=== PATIENT | female | born 1975 | race Caucasian/White ===

== ENCOUNTER 2016-04-21 11:58 | Emergency (ER) | payer BC ==
[~2016-04-21] VITALS: Ht 165.1 cm; Wt 99.1 kg
[~2016-04-21 11:58] MED LIST: GABA100C4 PO; MECL25CH CHEW; MELO7.5T4 PO; VARIINJ SQ
[2016-04-21 12:03] VITALS: BP 143/89; PULSE 80; RESP 18; TEMP 98.7; O2SAT 98
--- NOTE | 2016-04-21 13:22 | PD ---
HPI Chief Complaint: Cold / Flu Symptoms Time Seen by Provider: 13:19 Travel History International Travel<30 days: No Contact w/Intl Traveler<30days: No Traveled to known affect area: No History of Present Illness HPI Patient is a 40-year-old female presenting with "head cold for one week ". She states she's had nasal congestion, dry throat and it cough for one week. Mostly dry but occasionally has been clear sputum. She has had 2 episodes with small streaks of blood in it. She has had some tightness in her chest and equivocal wheezing, no history of asthma or tobacco use. She denies chest pain and dyspnea. She states that yesterday she developed a fever with MAXIMUM TEMPERATURE 101.1 Fahrenheit. It has responded to antipyretics. She feels like all her symptoms have worsened and that time and she has worsening cough, worsening nasal congestion as well as hoarseness in her voice. She denies difficulty swallowing or breathing. She denies pain in her neck. She denies abdominal pain, nausea, vomiting, diarrhea. She did not receive influenza vaccine and works in a [employer]. [facility] Past Medical History Medical History: Denies Significant Hx Asthma: Yes Autoimmune Disease: No Heart Rhythm Problems: No Cancer: No Cardiac Catheterization: No Cardiovascular Problems: No High Cholesterol: No Congestive Heart Failure: No Diabetes: No Diminished Hearing: No Endocrine: No GERD: Yes Genitourinary: No Hepatitis: No Hiatal Hernia: No Hypertension: No Immune Disorder: No Musculoskeletal: No Neurologic: Yes (NARCOLEPSY) Psychiatric: No Reproductive: No Immunizations Current: Yes Myocardial Infarction: No Thyroid Disease: No Tetanus Vaccination: > 5 Years Influenza Vaccination: No ?: Not LMP: 2 WEEKS AGO : 1 Para: 1 Past Surgical History Abdominal Surgery: Yes Section: Yes Cholecystectomy: Yes Coronary Artery Bypass Graft: No Pacemaker: No Tonsillectomy: Yes Other Surgery: Yes (foot sugery) Family History Family Myocardial Infarction: Yes (MOTHER ) Social History Alcohol Use: No Tobacco Use: No Substance Use: No Allergies-Medications (Allergen,Severity, Reaction): Coded Allergies: Aspirin (Verified Allergy, Intermediate, Rash, 04/21/16) Reported Meds & Prescriptions Reported Meds & Active Scripts Active Proair Hfa 8.5 GM Inh (Albuterol Sulfate) 90 Mcg/Act Aer 2 Puff INH Q4-6H PRN 108 mcg/actuation Azithromycin 250 Mg Tab 250 Mg PO DIRECTED Take 2 tabs (500 mg) on day 1 then 1 tab daily x 4 days. Tessalon Perles (Benzonatate) 100 Mg Cap 100-200 Mg PO TID PRN Medrol Dosepak (Methylprednisolone) 4 Mg Dspk 4 Mg PO DIRECTED Per Pharmacist direction Review of Systems Except as stated in HPI: all other systems reviewed are Neg Physical Exam Narrative GENERAL: Well-developed and well-nourished adult female in no acute distress. SKIN: Warm and dry. Good turgor without tenting. HEAD: Normocephalic and atraumatic. EYES: PERRL bilaterally, 5mm. EOMI bilaterally. No injection or icterus present. No proptosis. Lids without edema or erythema. ENT: Bilateral ear canals are non-edematous/non-erythematous without otorrhea. Bilateral TMs have intact landmarks and without distortion, perforation, air- fluid level or erythema. Nasal mucosa erythematous and edematous with scant yellow discharge, septum intact and midline. Buccal mucosa pink and moist. Oropharynx free of erythema, tonsillar hypertrophy, masses, swelling, asymmetry and exudates. Uvula midline and airway patent. NECK: Supple, no meningeal signs. Trachea midline, no JVD. No cervical or facial lymphadenopathy. CARDIOVASCULAR: Regular rate and rhythm without murmurs, rubs, clicks or gallops. Radial and posterior tibial pulses 2+ bilaterally. No pedal edema. Negative bilateral Homans sign. RESPIRATORY: Somewhat confused breath sounds in the posterior mid upper lung ambrose without clear wheezing. No rales or rhonchi auscultated. No distress or use of accessory muscles. No stridor, tripoding or drooling. GASTROINTESTINAL: Non-tender, non-distended. Normal bowel sounds all 4 quadrants. No masses or organomegaly present. MUSCULOSKELETAL: No gait disturbances. Patient freely moving all four extremities spontaneously. Extremities without clubbing, cyanosis, or edema. No obvious deformities. NEUROLOGIC: CN II-XII grossly intact. Awake and alert. Motor grossly within normal limits. Normal speech. PSYCHIATRIC: Appropriate mood and affect; insight and judgment normal. Data Data Last Documented VS Vital Signs Date Time Temp Pulse Resp B/P Pulse Ox O2 Delivery O2 Flow Rate FiO2 04/21/16 12:14 20 98 Room Air 04/21/16 12:03 98.7 80 143/89 Orders Methylprednisolone So Succ Inj (Solumedr (04/21/16 13:30) Albuterol-Ipratropium Neb (Duoneb Neb) (04/21/16 13:30) Influenzae A/B Antigen (04/21/16 13:17) Chest, Pa & Lat (04/21/16 ) MDM Medical Decision Making Medical Screen Exam Complete: Yes Emergency Medical Condition: Yes Interpretation(s) Last 24 hours Impressions Chest X-Ray 04/21/16 0000 Signed Impressions: Service Date/Time: April 13:25 - CONCLUSION: No acute cardiopulmonary disease identified. Alejo Esquivel MD Differential Diagnosis Viral syndrome versus influenza versus bronchitis versus pneumonia Narrative Course Patient is a 40-year-old otherwise healthy female presenting with cough and nasal congestion for 1 week with acute worsening yesterday and development of a fever. She is currently afebrile after taking ibuprofen. She has some decreased breath sounds in the upper lung ambrose bilaterally but no clear wheezing. No rales or rhonchi. No increased work of breathing. She is nontoxic appearing. Patient was given Solu-Medrol and DuoNeb and ordered x-ray of the chest and rapid flu testing. Rapid flu negative. Chest x-ray shows no acute cardiopulmonary process. After the steroids and nebulizer patient feels much improved and in the the decreased breath sounds are now resolved and she has full breath sounds throughout the lung ambrose. As patient has worsening symptoms of bronchitis and reports a fever which is atypical with viral bronchitis we'll prescribe azithromycin as there may be an early infiltrate not visible on x-ray. Also prescribed Tessalon Perles, vaginal dose pack and albuterol inhaler.See discharge paperwork for further instructions. The plan was discussed with the patient who acknowledged their understanding and agreement. Reinforced the follow-up with primary care is critically important. Patient instructed on emergent conditions that should prompt return to ED. Diagnosis Primary Impression: Acute bronchitis Qualified Code: J20.9 - Acute bronchitis, unspecified organism Patient Instructions: Acute Bronchitis (ED), General Instructions Departure Forms: Tests/Procedures, Work Release Enter return to work date: Apr 23, 2016 Additional Instructions: Take medication as prescribed OTC Mucinex, cough suppressants, and decongestants as needed OTC Tylenol or Ibuprofen for fever and discomfort Drink lots of fluid to help clear mucous/drainage and stay hydrated Follow up with PCP in 2 days Return to the ED for any acute worsening of symptoms Med/Other Pt SpecificInfo: Prescription(s) given Scripts Albuterol 8.5 GM Inh (Proair Hfa 8.5 GM Inh)90 Mcg/Act Aer2 Puff INH Q4-6H PRN ( SHORTNESS OF BREATH) #1 INHALER 108 mcg/actuation Prov:Sd Francisco MD 04/21/16 Azithromycin 250 Mg [id number] Mg PO DIRECTED #6 TAB Take 2 tabs (500 mg) on day 1 then 1 tab daily x 4 days. Prov:Sd Francisco MD 04/21/16 Benzonatate (Tessalon Perles)100 Mg [id number] Mg PO TID PRN (COUGH) #20 CAP Prov:Sd Francisco MD 04/21/16 Methylprednisolone Dosepak (Medrol Dosepak)4 Mg Dspk4 Mg PO DIRECTED #1 DSPK Per Pharmacist direction Prov:Sd Francisco MD 04/21/16 Disposition: 01 DISCHARGE HOME Condition: Stable Aidan Robb III Apr 21, 2016 13:22
[2016-04-21] MEDS ORDERED: methylPREDNISolone SOD SUCC 125 MG/2 ML VIAL IM ONE (13:30)
[2016-04-21] MEDS: RESP: ALBUTEROL 2.5 MG/IPRATROPIUM 0.5 MG NEB (SCH) INH ×2 (13:31→13:33)
--- NOTE | 2016-04-21 13:56 | RADHPO ---
EXAM DATE/TIME: 04/21/2016 13:25 [facility] COMPARISON: No previous studies available for comparison. INDICATIONS : Cough, congestion, fever, chest tighness. MEDICAL HISTORY : Gastroesophageal reflux disease. Gall stones. Narcolepsy.Asthma. SURGICAL HISTORY : Tonsillectomy. Cholecystectomy. section. ENCOUNTER: Initial ACUITY: 1 week PAIN SCORE: 5/10 LOCATION: chest FINDINGS: PA and lateral views of the chest. The lungs are clear. Cardiomediastinal silhouette within normal li mits. No evidence of pleural effusion or pneumothorax. CONCLUSION: No acute cardiopulmonary disease identified. Alejo Esquivel MD on April 21, 2016 at 13:53 Board Certified Radiologist. This report was verified electronically.
[2016-04-21] MEDS ORDERED: BENZ100 PO (14:20)
[2016-04-21] MEDS ORDERED: AZIT250T3 PO (14:20)
[2016-04-21] MEDS ORDERED: MEDR4PAK PO (14:20)
[2016-04-21] MEDS ORDERED: ALBUAER3 INH (14:23)
[2016-06-16] MEDS ORDERED: SUMA50TA2 PO (15:03)
[2016-07-01] MEDS ORDERED: NAPR-701 PO (09:05)
[2016-07-22] MEDS ORDERED: MEDR4PAK PO (10:56)
[2016-07-22] MEDS ORDERED: MOBI7.5T PO (10:56)
[2016-09-02] MEDS ORDERED: MOBI7.5T PO (06:03)
== END 2016-04-21 14:55 | disposition home or self-care (01) ==
LOC: PHEFT 11:58
DX: J20.9 Acute bronchitis, unspecified (principal)
CPT/HCPCS: 71020; 87804; 94640; 94664; 96372; 99283; J2930

== ENCOUNTER 2016-05-04 11:48 | Emergency (ER) | payer BC ==
[~2016-05-04] VITALS: Ht 165.1 cm; Wt 99.2 kg
[~2016-05-04 11:48] MED LIST changes: +ALBUAER3 INH; +AZIT250T3 PO; +BENZ100 PO; -GABA100C4 PO; -MECL25CH CHEW; +MEDR4PAK PO; -MELO7.5T4 PO
[2016-05-04 12:02] VITALS: BP 135/98; PULSE 108; RESP 18; TEMP 98.2; O2SAT 97
[2016-05-04 13:02] VITALS: BP 132/78; PULSE 98; RESP 20; O2SAT 96
[2016-05-04] MEDS ORDERED: ONDANSETRON ODT 4 MG TAB PO ONE (13:15)
[2016-05-04] MEDS ORDERED: DICYCLOMINE HCL 10 MG CAP PO ONE (13:30)
[2016-05-04] MEDS ORDERED: ZOFR4TAB3 SL (13:50)
--- NOTE | 2016-05-04 13:50 | PD ---
HPI Chief Complaint: Abdominal Pain Time Seen by Provider: 12:58 Travel History International Travel<30 days: No Contact w/Intl Traveler<30days: No Traveled to known affect area: No History of Present Illness HPI 40-year-old female presents with central intermittent abdominal pain and vomiting and diarrhea since 5:30 this morning. She denies any specific sick contacts. She denies other concurrent complaints. She states she has not been able to keep down liquids so she elected to come here. She denies any specific migration the pain. Quality is nonbloody. Severity is multiple episodes per patient. PFSH Past Medical History Asthma: Yes Autoimmune Disease: No Heart Rhythm Problems: No Cancer: No Cardiac Catheterization: No Cardiovascular Problems: No High Cholesterol: No Congestive Heart Failure: No Diabetes: No Diminished Hearing: No Endocrine: No GERD: Yes Genitourinary: No Hepatitis: No Hiatal Hernia: No Hypertension: No Immune Disorder: No Medical other: Yes (NARCOLEPSY) Musculoskeletal: No Neurologic: Yes (NARCOLEPSY) Psychiatric: No Reproductive: No Immunizations Current: Yes Myocardial Infarction: No Thyroid Disease: No ?: Not : 1 Para: 1 Past Surgical History Abdominal Surgery: Yes Section: Yes Cholecystectomy: Yes Coronary Artery Bypass Graft: No Pacemaker: No Tonsillectomy: Yes Other Surgery: Yes (foot sugery) Family History Family Myocardial Infarction: Yes (MOTHER ) Social History Alcohol Use: No Tobacco Use: No Substance Use: No Allergies-Medications (Allergen,Severity, Reaction): Coded Allergies: Aspirin (Verified Allergy, Intermediate, Rash, 05/04/16) Reported Meds & Prescriptions Reported Meds & Active Scripts Active Zofran Odt (Ondansetron Odt) 4 Mg Tab 4 Mg SL Q6HR PRN Review of Systems Except as stated in HPI: all other systems reviewed are Neg Physical Exam Narrative GENERAL: Well-nourished, well-developed patient. Well-appearing SKIN: Warm and dry. HEAD: Normocephalic and atraumatic. EYES: No injection or drainage. ENT: No nasal drainage noted. NECK: Supple, trachea midline. CARDIOVASCULAR: Regular rate and rhythm RESPIRATORY: No increased effort. No accessory muscle use. GASTROINTESTINAL: Abdomen soft, non-tender, nondistended. NEUROLOGICAL: Awake and alert. Motor and sensory grossly within normal limits. Normal speech. Data Data Last Documented VS Vital Signs Date Time Temp Pulse Resp B/P Pulse Ox O2 Delivery O2 Flow Rate FiO2 05/04/16 14:07 90 20 120/48 96 05/04/16 12:02 98.2 Orders Ondansetron Odt (Zofran Odt) (05/04/16 13:15) Oral Rehydration (05/04/16 13:08) Dicyclomine (Bentyl) (05/04/16 13:30) MDM Medical Decision Making Medical Screen Exam Complete: Yes Emergency Medical Condition: Yes Medical Record Reviewed: Yes (past history confirmed) Differential Diagnosis Gastroenteritis, dehydration, colitis Narrative Course Patient with benign exam and vitals. She agrees to oral Zofran and if can tolerate liquids discharge home with this. Given Bentyl for pain No emesis here,Patient denies any new complaints and states that they are feeling better. Patient happy with care, all questions answered. Patient knows that follow up is incumbent on them and to return to the emergency room immediately if new or worsening symptoms develop. Patient given strict return precautions, vitals reviewed and are normal, agrees to further workup as an outpatient. Diagnosis Primary Impression: Vomiting and diarrhea Additional Impression: Abdominal pain Qualified Code: R10.33 - Periumbilical abdominal pain Patient Instructions: General Instructions Additional Instructions: return as needed, follow primary next 1-2 days, zofran as needed, bentyl and tylenol as needed Med/Other Pt SpecificInfo: Prescription(s) given Scripts Ondansetron Odt (Zofran Odt)4 Mg Tab4 Mg SL Q6HR PRN (Nausea/Vomiting) #10 TAB Prov:Mely Sanchez MD 05/04/16 Disposition: 01 DISCHARGE HOME Condition: Stable Mely Sanchez MD May 04, 2016 13:50
[2016-05-04 14:07] VITALS: BP 120/48
[2016-06-16] MEDS ORDERED: SUMA50TA2 PO (15:03)
[2016-07-01] MEDS ORDERED: NAPR-701 PO (09:05)
[2016-07-22] MEDS ORDERED: MEDR4PAK PO (10:56)
[2016-07-22] MEDS ORDERED: MOBI7.5T PO (10:56)
[2016-09-02] MEDS ORDERED: MOBI7.5T PO (06:03)
== END 2016-05-04 14:09 | disposition home or self-care (01) ==
LOC: PHED 11:48
DX: R11.10 Vomiting, unspecified (principal); R19.7 Diarrhea, unspecified; R10.33 Periumbilical pain
CPT/HCPCS: 99283

== ENCOUNTER 2016-07-12 12:27 | Observation (INO) | payer BC ==
[~2016-07-12 12:27] MED LIST changes: -ALBUAER3 INH; -AZIT250T3 PO; -BENZ100 PO; -MEDR4PAK PO; +NAPR-701 PO; +SUMA50TA2 PO; +ZOFR4TAB3 SL
[2016-07-12 12:30] VITALS: BP_SYST 126; BP_SYST 127; BP_DIAS 60; BP_DIAS 67; BP_DIAS 70; PULSE 79; PULSE 80; RESP 14; RESP 16; TEMP 98; O2SAT 98
--- NOTE | 2016-07-12 12:33 | PD ---
Physical Exam Date Seen by Provider: Jul 12, 2016 Time Seen by Provider: 12:31 Narrative Pt is a 41 y/o female presenting to the ED with c/o chest pain. Chest pain started at 1115, pt took asa 81mg and nitro SL which helped the pain. Pain was not caused by activity. VSS. Awaiting bed placement. No PMHx, LMP 2 weeks ago MDM Supervised Visit with DONNA: Maria Dolores Theodore Jul 12, 2016 12:33
--- NOTE | 2016-07-12 12:50 | PD ---
HPI Chief Complaint: Chest Pain Time Seen by Provider: 12:50 Travel History International Travel<30 days: No Contact w/Intl Traveler<30days: No Traveled to known affect area: No History of Present Illness HPI 41-year-old female with a history of GERD presents to the emergency department for evaluation of chest pain. 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 States that the pain is a pressure-like sensation that radiates to her right arm. States it is associated with some shortness of breath, nausea and mild lightheadedness. Denies any fever, chills, vomiting, diarrhea, cough or cold symptoms, abdominal pain. Denies any history of heart disease or [place]. States that she last had a stress test about 5 years ago that was within normal limits. Has never had a heart catheterization. Denies any history of blood clots. States that she has had swelling in the right lower leg over the past several weeks that she has had worked up as an outpatient by her PCP, had a negative ultrasound. PCP is family practice service. No other complaints. PFSH Past Medical History Asthma: Yes Autoimmune Disease: No Heart Rhythm Problems: No Cancer: No Cardiac Catheterization: No Cardiovascular Problems: No High Cholesterol: No Congestive Heart Failure: No Diabetes: No Diminished Hearing: No Endocrine: No GERD: Yes Genitourinary: No Hepatitis: No Hiatal Hernia: No Hypertension: No Immune Disorder: No Musculoskeletal: No Neurologic: Yes (NARCOLEPSY) Psychiatric: No Reproductive: No Immunizations Current: Yes Myocardial Infarction: No Thyroid Disease: No ?: Not LMP: 06/26/16 : 1 Para: 1 Past Surgical History Abdominal Surgery: Yes Section: Yes Cholecystectomy: Yes Coronary Artery Bypass Graft: No Pacemaker: No Tonsillectomy: Yes Other Surgery: Yes (foot sugery) Social History Alcohol Use: No Tobacco Use: No Substance Use: No Allergies-Medications (Allergen,Severity, Reaction): Coded Allergies: Aspirin (Verified Allergy, Intermediate, Rash, 07/06/16) Reported Meds & Prescriptions Reported Meds & Active Scripts Active Naproxen Sodium 500 Mg Tab 500 Mg PO BID Sumatriptan (Sumatriptan Succinate) 50 Mg Tab 50 Mg PO ONCE PRN If a satisfactory response has not been obtained at 2 hours, a second dose may be administered Zofran Odt (Ondansetron Odt) 4 Mg Tab 4 Mg SL Q6HR PRN Review of Systems Except as stated in HPI: all other systems reviewed are Neg Physical Exam Narrative GENERAL: Well-nourished and well-developed pleasant female patient in no acute distress who is nontoxic appearing. SKIN: Warm and dry. HEAD: Normocephalic and atraumatic. EYES: No injection, drainage, or hyphema noted. PERRLA. EOMI. ENT: No nasal drainage noted. Oropharynx is clear. NECK: Supple and the trachea is midline. CARDIOVASCULAR: Regular rate and rhythm. RESPIRATORY: Breath sounds are equal bilaterally with no accessory muscle use, wheezing, rhonchi, or crackles. GASTROINTESTINAL: Abdomen is soft, non-tender, and nondistended. MUSCULOSKELETAL: No obvious deformities, swelling, cyanosis, or ecchymosis is present throughout the upper and lower extremities. Patient has full range of motion without any signs of neurovascular compromise. NEUROLOGICAL: Awake, alert, and oriented. Normal speech and gait. Cranial nerves are grossly intact. Data Data Last Documented VS Vital Signs Date Time Temp Pulse Resp B/P Pulse Ox O2 Delivery O2 Flow Rate FiO2 07/12/16 13:40 76 14 125/69 97 Nasal Cannula 2 07/12/16 12:30 98.0 Orders Electrocardiogram (07/12/16 12:48) Ckmb (Isoenzyme) Profile (07/12/16 12:48) Complete Blood Count With Diff (07/12/16 12:48) Comprehensive Metabolic Panel (07/12/16 12:48) Magnesium (Mg) (07/12/16 12:48) Prothrombin Time / Inr (Pt) (07/12/16 12:48) Act Partial Throm Time (Ptt) (07/12/16 12:48) Troponin I (07/12/16 12:48) Chest, Single Ap (07/12/16 12:48) Ecg Monitoring (07/12/16 12:48) Bilateral Bp Monitoring (07/12/16 12:48) Iv Access Insert/Monitor (07/12/16 12:48) Oximetry (07/12/16 12:48) Sodium Chloride 0.9% Flush (Ns Flush) (07/12/16 13:00) Nitroglycerin Sl (Nitrostat Sl) (07/12/16 13:00) CKMB (07/12/16 12:45) CKMB% (07/12/16 12:45) Admit Order (Ed Use Only) (07/12/16 13:54) Ed Urine Pregnancytest Poc (07/12/16 13:56) Labs Laboratory Tests Test 07/12/16 12:45 White Blood Count 10.1 TH/MM3 Red Blood Count 4.37 MIL/MM3 Hemoglobin 13.5 GM/DL Hematocrit 39.1 % Mean Corpuscular Volume 89.4 FL Mean Corpuscular Hemoglobin 30.8 PG Mean Corpuscular Hemoglobin 34.4 % Concent Red Cell Distribution Width 12.5 % Platelet Count 298 TH/MM3 Mean Platelet Volume 9.3 FL Neutrophils (%) (Auto) 69.1 % Lymphocytes (%) (Auto) 22.7 % Monocytes (%) (Auto) 7.4 % Eosinophils (%) (Auto) 0.4 % Basophils (%) (Auto) 0.4 % Neutrophils # (Auto) 7.0 TH/MM3 Lymphocytes # (Auto) 2.3 TH/MM3 Monocytes # (Auto) 0.7 TH/MM3 Eosinophils # (Auto) 0.0 TH/MM3 Basophils # (Auto) 0.0 TH/MM3 CBC Comment DIFF FINAL Differential Comment Prothrombin Time 10.6 SEC Prothromb Time International 1.0 RATIO Ratio Activated Partial 27.5 SEC Thromboplast Time Sodium Level 139 MEQ/L Potassium Level 3.7 MEQ/L Chloride Level 106 MEQ/L Carbon Dioxide Level 22.0 MEQ/L Anion Gap 11 MEQ/L Blood Urea Nitrogen 6 MG/DL Creatinine 0.69 MG/DL Estimat Glomerular Filtration 93 ML/MIN Rate Random Glucose 109 MG/DL Calcium Level 9.1 MG/DL Magnesium Level 2.2 MG/DL Total Bilirubin 0.4 MG/DL Aspartate Amino Transf 28 U/L (AST/SGOT) Alanine Aminotransferase 62 U/L (ALT/SGPT) Alkaline Phosphatase 101 U/L Total Creatine Kinase 112 U/L Creatine Kinase MB 1.1 NG/ML Troponin I LESS THAN 0.02 NG/ML Total Protein 7.8 GM/DL Albumin 4.0 GM/DL MDM Medical Decision Making Medical Screen Exam Complete: Yes Emergency Medical Condition: Yes Differential Diagnosis ACS versus pleurisy versus chest wall pain versus other Narrative Course 41-year-old female presents to the emergency department for evaluation of chest pain. Patient is afebrile, vital signs are stable. Physical examination is unremarkable. EKG shows normal sinus rhythm with no acute ST elevations or depressions. IV access is obtained, labs were drawn and sent. Patient is placed on cardiac telemetry and pulse oximetry monitoring. CBC is unremarkable. CMP is unremarkable. Troponin is less than 0.02. Coags are unremarkable. Chest x-ray is unremarkable. Patient has remained stable and without complaint while here in the emergency department. Reports improvement of symptoms. Discussed all findings with the patient and family. Patient will be admitted to chest pain center for repeat cardiac enzymes, EKGs and possible stress testing. I discussed the case with my attending physician Dr. Sanchez who is aware of the patients history, physical examination findings, and treatment plan. Diagnosis Primary Impression: Chest pain Qualified Code: R07.9 - Chest pain, unspecified type Admitting Information Admitting Physician Requests: Li Link Jul 12, 2016 12:50
[2016-07-12] MEDS ORDERED: SODIUM CHLORIDE 0.9% FLUSH 10 ML FLUSH IVF PRN (13:00)
[2016-07-12] MEDS: NITROGLYCERIN 0.4 MG SL 25 TABS/BTL SL SCH ×2 (13:05→13:31)
[2016-07-12 13:07] LABS: BASOPHIL % 0.4 % (0.0-2.0); EOSINOPHIL % 0.4 % (0.0-4.0); HEMATOCRIT 39.1 % (35.0-46.0); HEMO FLAGS DIFF FINAL; LYMPH % 22.7 % (9.0-44.0); LYMPHOCYTE # 2.3 TH/MM3 (1.0-4.8); MEAN CELL VOLUME 89.4 FL (80.0-100.0); MEAN CORPUSCULAR HEMOGLOBIN 30.8 PG (27.0-34.0); MEAN CORPUSCULAR HGB CONC 34.4 % (32.0-36.0); MONO % 7.4 % (0.0-8.0); NEUT % 69.1 % (16.0-70.0); PLATELET COUNT 298 TH/MM3 (150-450); RED BLOOD COUNT 4.37 MIL/MM3 (4.00-5.30); RED CELL DISTRIBUTION WIDTH 12.5 % (11.6-17.2); WHITE BLOOD COUNT 10.1 TH/MM3 (4.0-11.0)
[2016-07-12 13:20] LABS: APTT (PATIENT) 27.5 SEC (24.3-30.1); PROTHROMBIN TIME - PATIENT 10.6 SEC (9.8-11.6)
--- NOTE | 2016-07-12 13:24 | RADRPT ---
EXAM DATE/TIME: 07/12/2016 13:05 [facility] COMPARISON: CHEST SINGLE AP, February 11, 2015, 14:10. INDICATIONS : Chest pain. MEDICAL HISTORY : None. SURGICAL HISTORY : None. ENCOUNTER: Initial ACUITY: 1 day PAIN SCORE: 6/10 LOCATION: Bilateral chest FINDINGS: A single view of the chest demonstrates the lungs to be symmetrically aerated without evidence of mas s, infiltrate or effusion. The cardiomediastinal contours are unremarkable. Osseous structures are intact. CONCLUSION: No acute disease. Jefry Martin MD on July 12, 2016 at 13:22 Board Certified Radiologist. This report was verified electronically.
[2016-07-12 13:29] LABS: ANION GAP 11 MEQ/L (5-15); AST (GOT) 28 U/L (15-37); BLOOD UREA NITROGEN 6 MG/DL (7-18); CHLORIDE 106 MEQ/L (98-107); GLOMERULAR FILTRATION RATE 93 ML/MIN (>89); MAGNESIUM 2.2 MG/DL (1.5-2.5); POTASSIUM 3.7 MEQ/L (3.5-5.1); SODIUM (NA) 139 MEQ/L (136-145)
[2016-07-12 13:34] LABS: ALKALINE PHOSPHATASE 101 U/L (45-117); ALT (GPT) 62 U/L (10-53); CREATINE KINASE 112 U/L (26-192); TOTAL BILIRUBIN ADULT 0.4 MG/DL (0.2-1.0)
[2016-07-12 13:40] VITALS: BP 125/69; PULSE 76; RESP 14; O2SAT 97
[2016-07-12 13:47] LABS: CKMB 1.1 NG/ML (0.5-3.6)
--- NOTE | 2016-07-12 14:15 | PD ---
Physical Exam Narrative GENERAL: Well-nourished, well-developed patient. SKIN: Warm and dry. HEAD: Normocephalic and atraumatic. EYES: No injection or drainage. ENT: No nasal drainage noted. NECK: Supple, trachea midline. CARDIOVASCULAR: Regular rate and rhythm RESPIRATORY: no increased effort. No accessory muscle use. NEUROLOGICAL: Awake and alert. Motor and sensory grossly within normal limits. Normal speech. Data Data Last Documented VS Vital Signs Date Time Temp Pulse Resp B/P Pulse Ox O2 Delivery O2 Flow Rate FiO2 07/12/16 13:40 76 14 125/69 97 Nasal Cannula 2 07/12/16 12:30 98.0 Orders Electrocardiogram (07/12/16 12:48) Ckmb (Isoenzyme) Profile (07/12/16 12:48) Complete Blood Count With Diff (07/12/16 12:48) Comprehensive Metabolic Panel (07/12/16 12:48) Magnesium (Mg) (07/12/16 12:48) Prothrombin Time / Inr (Pt) (07/12/16 12:48) Act Partial Throm Time (Ptt) (07/12/16 12:48) Troponin I (07/12/16 12:48) Chest, Single Ap (07/12/16 12:48) Ecg Monitoring (07/12/16 12:48) Bilateral Bp Monitoring (07/12/16 12:48) Iv Access Insert/Monitor (07/12/16 12:48) Oximetry (07/12/16 12:48) Sodium Chloride 0.9% Flush (Ns Flush) (07/12/16 13:00) Nitroglycerin Sl (Nitrostat Sl) (07/12/16 13:00) CKMB (07/12/16 12:45) CKMB% (07/12/16 12:45) Admit Order (Ed Use Only) (07/12/16 13:54) Labs Laboratory Tests Test 07/12/16 12:45 White Blood Count 10.1 TH/MM3 Red Blood Count 4.37 MIL/MM3 Hemoglobin 13.5 GM/DL Hematocrit 39.1 % Mean Corpuscular Volume 89.4 FL Mean Corpuscular Hemoglobin 30.8 PG Mean Corpuscular Hemoglobin 34.4 % Concent Red Cell Distribution Width 12.5 % Platelet Count 298 TH/MM3 Mean Platelet Volume 9.3 FL Neutrophils (%) (Auto) 69.1 % Lymphocytes (%) (Auto) 22.7 % Monocytes (%) (Auto) 7.4 % Eosinophils (%) (Auto) 0.4 % Basophils (%) (Auto) 0.4 % Neutrophils # (Auto) 7.0 TH/MM3 Lymphocytes # (Auto) 2.3 TH/MM3 Monocytes # (Auto) 0.7 TH/MM3 Eosinophils # (Auto) 0.0 TH/MM3 Basophils # (Auto) 0.0 TH/MM3 CBC Comment DIFF FINAL Differential Comment Prothrombin Time 10.6 SEC Prothromb Time International 1.0 RATIO Ratio Activated Partial 27.5 SEC Thromboplast Time Sodium Level 139 MEQ/L Potassium Level 3.7 MEQ/L Chloride Level 106 MEQ/L Carbon Dioxide Level 22.0 MEQ/L Anion Gap 11 MEQ/L Blood Urea Nitrogen 6 MG/DL Creatinine 0.69 MG/DL Estimat Glomerular Filtration 93 ML/MIN Rate Random Glucose 109 MG/DL Calcium Level 9.1 MG/DL Magnesium Level 2.2 MG/DL Total Bilirubin 0.4 MG/DL Aspartate Amino Transf 28 U/L (AST/SGOT) Alanine Aminotransferase 62 U/L (ALT/SGPT) Alkaline Phosphatase 101 U/L Total Creatine Kinase 112 U/L Creatine Kinase MB 1.1 NG/ML Troponin I LESS THAN 0.02 NG/ML Total Protein 7.8 GM/DL Albumin 4.0 GM/DL [facility] Supervised Visit with DONNA: Yes Interpretation(s) EKG shows NSR, no ST elevation or depression, and no arrhythmias. No significant T-wave inversions. Last 24 hours Impressions Chest X-Ray 07/12/16 1248 Signed Impressions: Service Date/Time: Tuesday, July 12, 2016 13:05 - CONCLUSION: No acute disease. Jefry Martin MD CBC & BMP Diagram 07/12/16 12:45 Narrative Course I, Dr. anders, have reviewed the advance practice practitioner's documentation and am in agreement, met with the patient face to face, made the diagnosis, and the medical decision making was done by me. *My assessment and Findings: 41 y/o female presents with chest pain. Initial testing is negative. She agrees to chest pain center observation. Diagnosis Primary Impression: Chest pain Qualified Code: R07.9 - Chest pain, unspecified type Admitting Information Admitting Physician Requests: Observation Mely Anders MD Jul 12, 2016 14:15
[2016-07-12] MEDS ORDERED: TEMAZEPAM 15 MG CAP PO PRN (14:30)
[2016-07-12] MEDS ORDERED: ONDANSETRON HCL 4 MG/2 ML VIAL IV PRN (14:30)
[2016-07-12] MEDS ORDERED: ACETAMINOPHEN 500 MG CPLT PO PRN (14:30)
[2016-07-12] MEDS ORDERED: SODIUM CHLORIDE 0.9% FLUSH 5 ML FLUSH IVF PRN (14:30)
[2016-07-12] MEDS ORDERED: ACETAMINOPHEN/HYDROcodone 325 MG/7.5 MG TAB PO PRN (14:30)
[2016-07-12 14:59] VITALS: O2SAT 96
--- NOTE | 2016-07-12 15:12 | HHI.HP ---
HPI Primary Care Physician Isha Hough MD Chief Complaint Chest pain History of Present Illness This is a 41-year-old female that presents to the ED to be evaluated for chest discomfort. Patient states that she was passing out medications at work this morning at 11:00 when she had a sudden onset of a severe pressure in the left side her chest that radiated to the right chest. She happened with nurses station pain meds and was given a select glycerin and states that the discomfort with a 10 out of 10-0 within 3 minutes. She was short of breath and nauseous but no diaphoresis. The discomfort has not recurred. Denies recent illness. Denies fevers or chills. Denies history of CAD. Believes she had a stress test in the past. Upon reviewing records, patient had a Juma protocol ETT in 2007 that was nonischemic. Patient denies . Review of Systems General: Patient denies fevers, chills recent, and recent travel HEENT: Patient denies headache, sore throat, difficulty swallowing. Cardiovascular: Has the chest discomfort as mentioned above. Denies sensation of heart beating rapidly or irregularly. No syncope. Denies diaphoresis. Respiratory: She was short of breath. Denies inspirational chest discomfort. Denies coughing wheezing or hemoptysis. GI: She was nauseous initially. Patient denies vomiting, diarrhea, abdominal pain, bloody stools. Musculoskeletal: Patient denies joint pain or edema. Denies calf pain or edema. Neurovascular: Patient denies numbness, tingling, weakness in extremities. Denies headache. Endocrine: Denies polyuria and polydipsia. Hematologic: Denies easy bruising. Skin: Denies rash or itching. Past Family Social History Allergies: Coded Allergies: Aspirin (Verified Allergy, Intermediate, Rash, 07/06/16) Past Medical History Migraines. Denies hypertension, hyperlipidemia, diabetes, and CAD. Past Surgical History , cholecystectomy, tonsillectomy, and right Achilles tendon repair. Reported Medications Reported Meds & Active Scripts Active Naproxen Sodium 500 Mg Tab 500 Mg PO BID Sumatriptan (Sumatriptan Succinate) 50 Mg Tab 50 Mg PO ONCE PRN If a satisfactory response has not been obtained at 2 hours, a second dose may be administered Active Ordered Medications Current Medications Medications (Trade) Dose Ordered Sig/Juan Route Start Time Stop Time Status Last Admin (NS Flush) 2 ml UNSCH PRN IVF 07/12/16 14:30 (NS Flush) 2 ml BID IVF 07/12/16 21:00 (Tylenol) 500 mg Q4H PRN PO 07/12/16 14:30 ([place] 7.5-325 Mg) 1 tab Q4H PRN PO 07/12/16 14:30 (Zofran Inj) 4 mg Q6H PRN IV 07/12/16 14:30 (Restoril) 15 mg HS PRN PO 07/12/16 14:30 (Naprosyn) 500 mg BID PO 07/12/16 21:00 Family History States that her mother had an CT at age 37. She in her late 40s of COPD. Social History Patient does not smoke, use alcohol, or illicit drugs. She has been for 23 years. 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 Physical Exam Vital Signs Vital Signs Date Time Temp Pulse Resp B/P Pulse Ox O2 Delivery O2 Flow Rate FiO2 07/12/16 14:59 96 21 07/12/16 13:40 76 14 125/69 97 Nasal Cannula 2 07/12/16 12:30 80 14 127/60 98 Nasal Cannula 2 07/12/16 12:30 80 14 98 Nasal Cannula 2 07/12/16 12:30 98.0 80 16 127/67 98 Nasal Cannula 2 07/12/16 12:30 79 126/70 Physical Exam GENERAL: This is a well-nourished, well-developed patient, in no apparent distress. Patient speaks in clear complete sentences. Patient is pleasant. HEENT: Head is atraumatic and normocephalic. Neck is supple without lymphadenopathy and trachea is midline. No JVD or carotid bruits. CARDIOVASCULAR: Regular rate and rhythm without murmurs, gallops, or rubs. RESPIRATORY: Clear to auscultation. Breath sounds equal bilaterally. No wheezes , rales, or rhonchi. Chest wall is tender when palpating left side. This is the same discomfort that she has been having. No use of accessory muscles. GASTROINTESTINAL: Abdomen is nontender, nondistended. Abdomen soft. No obvious pulsatile mass or bruit. No CVA tenderness. Strong femoral pulses bilaterally. Normal bowel sounds in all quadrants. MUSCULOSKELETAL: Patient is moving upper and lower extremities freely. No calf tenderness or edema, no Homans sign. Strong pulses in upper and lower extremities. NEUROLOGICAL: Patient is alert and oriented. Cranial nerves 2-12 are grossly intact. No focal deficits and speech is clear. SKIN: No rash and turgor is normal. Laboratory Laboratory Tests Test 07/12/16 12:45 White Blood Count 10.1 Red Blood Count 4.37 Hemoglobin 13.5 Hematocrit 39.1 Mean Corpuscular Volume 89.4 Mean Corpuscular Hemoglobin 30.8 Mean Corpuscular Hemoglobin 34.4 Concent Red Cell Distribution Width 12.5 Platelet Count 298 Mean Platelet Volume 9.3 Neutrophils (%) (Auto) 69.1 Lymphocytes (%) (Auto) 22.7 Monocytes (%) (Auto) 7.4 Eosinophils (%) (Auto) 0.4 Basophils (%) (Auto) 0.4 Neutrophils # (Auto) 7.0 Lymphocytes # (Auto) 2.3 Monocytes # (Auto) 0.7 Eosinophils # (Auto) 0.0 Basophils # (Auto) 0.0 CBC Comment DIFF FINAL Differential Comment Prothrombin Time 10.6 Prothromb Time International 1.0 Ratio Activated Partial 27.5 Thromboplast Time Sodium Level 139 Potassium Level 3.7 Chloride Level 106 Carbon Dioxide Level 22.0 Anion Gap 11 Blood Urea Nitrogen 6 Creatinine 0.69 Estimat Glomerular Filtration 93 Rate Random Glucose 109 Calcium Level 9.1 Magnesium Level 2.2 Total Bilirubin 0.4 Aspartate Amino Transf 28 (AST/SGOT) Alanine Aminotransferase 62 (ALT/SGPT) Alkaline Phosphatase 101 Total Creatine Kinase 112 Creatine Kinase MB 1.1 Troponin I LESS THAN 0.02 Total Protein 7.8 Albumin 4.0 Result Diagram: 07/12/16 1245 07/12/16 1245 Imaging Last Impressions Chest X-Ray 07/12/16 1248 Signed Impressions: Service Date/Time: Tuesday, July 12, 2016 13:05 - CONCLUSION: No acute disease. Jefry Martin MD Course Initial EKG has sinus rhythm without significant ST segment depressions or elevations. Assessment and Plan Assessment and Plan * Chest pain: Patient's discomfort appears to be atypical. Appears very musculoskeletal. She will have serial cardiac enzymes and EKGs for ruling out purposes. She will be seen by Dr. Reynolds cardiology and the chest pain center. She will have a stress test in the morning and if nonischemic will likely be discharged home with instructions to follow-up with her primary care physician. Patient is stable at this time. She is agreeable to this plan. Dinesh Cornejo Jul 12, 2016 15:12
[2016-07-12 15:26] VITALS: BP 114/71; PULSE 76; RESP 14; O2SAT 98
[2016-07-12 16:50] VITALS: BP 114/71
[2016-07-12 17:00] VITALS: BP 135/84; PULSE 72; RESP 14; TEMP 97.3; O2SAT 95
--- NOTE | 2016-07-12 17:08 | HHI.DCPOC ---
Discharge Care Plan Diagnosis: (1) Chest pain, atypical Goals to Promote Your Health * To prevent worsening of your condition and complications * To maintain your health at the optimal level Directions to Meet Your Goals Take your medications as prescribed Follow your dietary instruction Follow activity as directed Keep your appointments as scheduled Take your immunizations and boosters as scheduled If your symptoms worsen call your PCP, if no PCP go to Urgent Care Center or Emergency Room Smoking is Dangerous to Your Health. Avoid second hand smoke Call the 24-hour hour crisis hotline for domestic abuse at Dinesh Cornejo Jul 12, 2016 17:07
--- NOTE | 2016-07-12 17:28 | EKG ---
Date Performed: 07/12/2016 Time Performed: 12:41:34 PTAGE: 41 years EKG: Sinus rhythm NORMAL ECG Since PREVIOUS TRACING , no significant change noted DOCTOR: Xenia Reynolds Interpretating Date/Time 07/12/2016 17:28:15
[2016-07-12] MEDS ORDERED: SODIUM CHLORIDE 0.9% FLUSH 5 ML FLUSH IVF SCH (21:00)
[2016-07-12] MEDS ORDERED: NAPROXEN 500 MG TAB PO SCH (21:00)
[2016-07-22] MEDS ORDERED: MEDR4PAK PO (10:56)
[2016-07-22] MEDS ORDERED: MOBI7.5T PO (10:56)
[2016-09-02] MEDS ORDERED: MOBI7.5T PO (06:03)
== END 2016-07-12 20:14 | disposition home or self-care (01) ==
LOC: NEPC 12:27 → NEDA 13:55 → NEPGCP 16:55
PROVIDERS: ADMIT Internal Medicine Interventional Cardiology; ATTEND Internal Medicine Interventional Cardiology
DX: R07.9 Chest pain, unspecified (principal); J45.909 Unspecified asthma, uncomplicated; K21.9 Gastro-esophageal reflux disease without esophagitis; G47.419 Narcolepsy without cataplexy
CPT/HCPCS: 71010; 80053; 82550; 82552; 83735; 84484; 84703; 85025; 85610; 85730; 93005; 99285; G0378

== ENCOUNTER 2017-04-15 13:43 | Emergency (ER) | payer BC ==
[~2017-04-15] VITALS: Ht 165.1 cm; Wt 101.0 kg
[~2017-04-15 13:43] MED LIST changes: +MEDR4PAK PO; +MOBI7.5T PO; -NAPR-701 PO; -ZOFR4TAB3 SL
[2017-04-15 13:46] VITALS: PULSE 94; RESP 16; TEMP 98.8; O2SAT 97
--- NOTE | 2017-04-15 14:23 | PD ---
HPI Chief Complaint: Cold / Flu Symptoms Time Seen by Provider: 14:11 Travel History International Travel<30 days: No Contact w/Intl Traveler<30days: No Traveled to known affect area: No History of Present Illness HPI 41yo F with osteoarthritis here with c/o productive cough and rhinorrhea since yesterday. Also with fever of 102.5F today. Bilateral temporal headache today. +Nonbloody diarrhea. Denies any neck pain, visual changes, chest pain, sob, n/v, abdominal pain, focal weakness or numbness. Pt said her was sick before her with similar symptoms but fine now. PFSH Past Medical History Asthma: Yes Autoimmune Disease: No Heart Rhythm Problems: No Cancer: No Cardiac Catheterization: No Cardiovascular Problems: No High Cholesterol: No Congestive Heart Failure: No Diabetes: No Diminished Hearing: No Endocrine: No GERD: Yes Genitourinary: No Hepatitis: No Hiatal Hernia: No Hypertension: No Immune Disorder: No Medical other: Yes (NARCOLEPSY) Musculoskeletal: No Neurologic: Yes (NARCOLEPSY) Psychiatric: No Reproductive: No Immunizations Current: Yes Myocardial Infarction: No Thyroid Disease: No ?: Not : 1 Para: 1 Past Surgical History Abdominal Surgery: Yes Section: Yes Cholecystectomy: Yes Coronary Artery Bypass Graft: No Pacemaker: No Tonsillectomy: Yes Other Surgery: Yes (foot sugery) Family History Family Myocardial Infarction: Yes (MOTHER ) Social History Alcohol Use: No Tobacco Use: No Substance Use: No Allergies-Medications (Allergen,Severity, Reaction): Coded Allergies: aspirin (Unverified Allergy, Intermediate, Rash, 04/15/17) Reported Meds & Prescriptions Reported Meds & Active Scripts Active No Active Prescriptions or Reported Medications Review of Systems Except as stated in HPI: all other systems reviewed are Neg Physical Exam Narrative GENERAL: 41yo F in mild distress. SKIN: Focused skin assessment warm/dry. HEAD: Atraumatic. Normocephalic. EYES: Pupils equal and round at 3mm bilaterally. EOMI. ENT: No nasal bleeding or discharge. Mucous membranes pink and moist. NECK: No nuchal rigidity. CARDIOVASCULAR: Regular rate and rhythm. No murmur appreciated. RESPIRATORY: No accessory muscle use. Clear to auscultation. Breath sounds equal bilaterally. GASTROINTESTINAL: Abdomen soft, non-tender, nondistended. MUSCULOSKELETAL: No obvious deformities. No clubbing. No cyanosis. No edema. NEUROLOGICAL: Awake and alert. No obvious cranial nerve deficits. Motor grossly within normal limits. Sensation intact. Normal speech. PSYCHIATRIC: Appropriate mood and affect; insight and judgment normal. Data Data Last Documented VS Vital Signs Date Time Temp Pulse Resp B/P (MAP) Pulse Ox O2 Delivery O2 Flow Rate FiO2 04/15/17 13:46 98.8 94 16 97 Orders Orders Influenzae A/B Antigen (04/15/17 14:17) Acetaminophen (Tylenol) (04/15/17 14:30) Guaifen-Cod 200-20 Mg/10ml Liq (Robituss (04/15/17 14:30) Chest, Pa & Lat (04/15/17 ) MDM Medical Decision Making Medical Screen Exam Complete: Yes Emergency Medical Condition: Yes Differential Diagnosis Influenza vs. viral syndrome vs. pneumonia Narrative Course 41yo F with cough, congestion, headache, diarrhea and fever. Pt is well appearing and there is no nuchal rigidity. Do not think pt has bacterial meningitis. Influenza negative. CXR negative. Pt given robitussin with codeine and acetaminophen. Pt reevaluated at bedside and said headache has resolved. Cough has also improved. No chest pain or sob. Pt wants to go home. Return precautions given. Diagnosis Primary Impression: Viral syndrome Patient Instructions: General Instructions Departure Forms: Tests/Procedures Additional Instructions: Please follow up with your primary care physician in 2-3 days. Return to the ED if symptoms worsen. Med/Other Pt SpecificInfo: Prescription(s) given Scripts Acetaminophen (Tylenol) 325 Mg Tab 650 MG PO Q6H Y for PAIN SCALE 1 TO 4, #20 TAB 0 Refills Prov: Kell Escobar DO 04/15/17 Dextromethorphan (Robitussin Lingering Cold) 15 Mg Cap 30 MG PO Q8H Y for COUGH for 5 Days, #30 CAP 0 Refills Prov: Kell Escobar DO 04/15/17 Disposition: 01 DISCHARGE HOME Condition: Stable Kell Escobar DO Apr 15, 2017 14:23
[2017-04-15] MEDS ORDERED: guaiFENesin/CODEINE SYRUP 200 MG/20 MG/10 ML CUP PO ONE (14:30)
[2017-04-15] MEDS ORDERED: ACETAMINOPHEN 325 MG TAB PO ONE (14:30)
--- NOTE | 2017-04-15 15:54 | RADRPT ---
EXAM DATE/TIME: 04/15/2017 15:10 [facility] COMPARISON: CHEST PA & LAT, April 21, 2016, 13:25. INDICATIONS : Cough, flu like symptoms and shortness of breath. MEDICAL HISTORY : None. SURGICAL HISTORY : None. ENCOUNTER: Initial ACUITY: 1 day PAIN SCORE: 0/10 LOCATION: Bilateral chest FINDINGS: PA and lateral views of the chest. The lungs are clear. Cardiomediastinal silhouette within normal li mits. No evidence of pleural effusion or pneumothorax. CONCLUSION: No acute cardiopulmonary disease identified. Alejo Esquivel MD on April 15, 2017 at 15:51 Board Certified Radiologist. This report was verified electronically.
[2017-04-15] MEDS ORDERED: TYLE325T PO (16:23)
[2017-04-15] MEDS ORDERED: ROBICAP2 PO (16:23)
[2017-04-15 16:38] VITALS: BP 119/70
== END 2017-04-15 16:42 | disposition home or self-care (01) ==
LOC: PHEFT 13:43
DX: B34.9 Viral infection, unspecified (principal); J45.909 Unspecified asthma, uncomplicated; K21.9 Gastro-esophageal reflux disease without esophagitis; G47.419 Narcolepsy without cataplexy
CPT/HCPCS: 71046; 87804; 99284